=== PATIENT | male | born 1955 | race Hispanic/Latino ===

== ENCOUNTER 2017-03-31 17:50 | Emergency (ER) | payer BC, MEDICARE ==
[2017-03-31 17:50] VITALS: BMI 46.6
[2017-03-31 18:14] VITALS: TEMP 98.3
[2017-03-31 18:53] VITALS: O2SAT 96
--- NOTE | 2017-03-31 19:20 | ED PDOC ---
HPI: General Adult Time Seen by Provider: 03/31/17 18:26 Chief Complaint (Nursing): Dizziness/Lightheaded Chief Complaint (Provider): Dizziness/Lightheaded History Per: Patient History/Exam Limitations: no limitations Onset/Duration Of Symptoms: Days (x3 days) Current Symptoms Are (Timing): Still Present Additional Complaint(s): 62 y/o male presents to the emergency department with a complaint of on and off dizziness with lightheadedness x2 days. Associated with generalized weakness. Reports it was out of nowhere and comes back randomly. States he had not experienced episode in the past. Denies chest pain, nausea, vomiting, diarrhea, shortness of breath, abdominal pain, numbness, tingling, cough, congestion, fever, or loss of consciousness. Of note, patient is on 2 different blood thinners after a blood clot was found by the heart about 1 1/2 years ago. PMD: Dr. Salvador Talamantes MD Past Medical History Reviewed: Historical Data, Nursing Documentation, Vital Signs Vital Signs: Last Vital Signs Temp 98.3 F 03/31/17 18:10 Pulse 57 L 03/31/17 18:52 Resp 18 03/31/17 18:52 BP 157/97 H 03/31/17 18:52 Pulse Ox 96 03/31/17 20:37 - Medical History PMH: CAD, HTN, Hypercholesterolemia, Hyperlipidemia, Mitral Valve Prolapse ( Repaired in 08/2014), Rheumatoid Arthritis Denies: Chronic Kidney Disease - Surgical History Surgical History: CABG (2013), Coronary Stent Other surgeries: Valve repair, Single bypass ,3 knee, 2 hip and 1 shoulder replacement - Family History Family History: States: Unknown Family Hx - Social History Current smoker - smoking cessation education provided: No Alcohol: None Drugs: Denies - Immunization History Hx Tetanus Toxoid Vaccination: No Hx Influenza Vaccination: No Hx Pneumococcal Vaccination: No - Home Medications Home Medications: Ambulatory Orders Medication Instructions Recorded Aspirin [Aspirin Chewable] 81 mg PO DAILY #0 chew 11/27/15 Atorvastatin [Lipitor] 20 mg PO DAILY #0 tab 11/27/15 DAPTOmycin [Cubicin] 900 mg IV DAILY #0 vial 11/27/15 Docusate [Colace] 200 mg PO DAILY #0 cap 11/27/15 Ertapenem 1gm in NS 50ml [Invanz] 1 gm IV DAILY #0 bag 11/27/15 Ferrous Sulfate [Feosol] 325 mg PO BID #0 tab 11/27/15 Metoprolol Tartrate [Lopressor] 12.5 mg PO BID 11/27/15 Primidone [Mysoline] 200 mg PO DAILY #0 tab 11/27/15 oxyCODONE/Acetaminophen [Percocet 1 tab PO Q4 PRN #0 tab 11/27/15 5/325 mg Tab] Enoxaparin [Lovenox] 40 mg SQ DAILY 12/12/15 - Allergies Allergies/Adverse Reactions: Allergies Allergy/AdvReac Type Severity Reaction Status Date / Time No Known Allergies Allergy Verified 11/27/15 15:36 Review of Systems ROS Statement: Except As Marked, All Systems Reviewed And Found Negative Constitutional: Positive for: Weakness (Generalized). Negative for: Fever, Other (Loss of consciousness) ENT: Negative for: Nose Congestion Cardiovascular: Negative for: Chest Pain Respiratory: Negative for: Cough, Shortness of Breath Gastrointestinal: Negative for: Nausea, Vomiting, Abdominal Pain, Diarrhea Neurological: Positive for: Dizziness (Lightheadedness). Negative for: Numbness (tingling), Headache Physical Exam - Reviewed Nursing Documentation Reviewed: Yes Vital Signs Reviewed: Yes - Physical Exam Appears: Positive for: Non-toxic, No Acute Distress Head Exam: Positive for: ATRAUMATIC, NORMAL INSPECTION, NORMOCEPHALIC Skin: Positive for: Normal Color, Warm, Dry Eye Exam: Positive for: Normal appearance, EOMI, PERRL. Negative for: Conjunctival injection ENT: Positive for: Normal ENT Inspection, TM Is/Are (Clear), Other (Left-sided ear has a wax build up. Right ear is clear. ). Negative for: Pharyngeal Erythema Neck: Positive for: Normal, Supple Cardiovascular/Chest: Positive for: Regular Rate, Rhythm. Negative for: Murmur Respiratory: Positive for: Normal Breath Sounds. Negative for: Accessory Muscle Use, Respiratory Distress Gastrointestinal/Abdominal: Positive for: Normal Exam, Soft. Negative for: Tenderness Extremity: Positive for: Normal ROM. Negative for: Pedal Edema, Swelling Neurologic/Psych: Positive for: Alert, Oriented - Laboratory Results Result Diagrams: 03/31/17 18:58 03/31/17 18:58 Interpretation Of Abn Labs: no acute - ECG ECG: Positive for: Interpreted By Me, Viewed By Me ECG Rhythm: Positive for: Nonspecific Changes (same as old) O2 Sat by Pulse Oximetry: 96 (RA) Pulse Ox Interpretation: Normal - Radiology X-Ray: Interpreted by Me, Viewed By Me X-Ray Interpretation: No Acute Disease - Progress ED Course And Treament: 2041: Stable. AAOx3. No dizziness or chest pain. No weakness. Feels back to baseline. Refusing CT scan and further evaluation. Aware of possible or decreased functioning from dizziness and weakness. Will fu with pcp. Has capacity to make decisions. Said he will call his doctor tomorrow. Medical Decision Making Medical Decision Making: Time: 18:38 Initial impression: Dizziness Initial plan: --Head CT --EKG --B-Type Natriuretic --Metabolic Panel --Troponin I --PTT --Prothrombin Time --Chest Portable --IV Insertion --Reevaluation Scribe Attestation: Documented by Bethany Villagomez, acting as a scribe for Ryland Bhatia MD. Provider Scribe Attestation: All medical record entries made by the Scribe were at my direction and personally dictated by me. I have reviewed the chart and agree that the record accurately reflects my personal performance of the history, physical exam, medical decision making, and the department course for this patient. I have also personally directed, reviewed, and agree with the discharge instructions and disposition. Disposition - Clinical Impression Clinical Impression: Dizziness, Weakness - Patient ED Disposition Is Patient to be Admitted: No - Disposition Referrals: Salvador Talamantes MD [Family Provider] - 04/01/17 Disposition: Against Medical Advice Disposition Time: 20:44 Condition: FAIR Additional Instructions: You are going against medical advice. You need a catscan of your head and further evaluation/treatment for your dizziness and weakness. Be aware of possible or decreased functioning from the cause of your symptoms. Return right away for further evaluation and treatment. Instructions: Weakness (ED) Forms: [employer] (Thai)
[2017-03-31 19:26] LABS: BASO % 0.3 % (0.0-2.0); EOS # 0.2 K/uL (0.0-0.7); EOS % 5.4 % (0.0-4.0); LYMPH # 0.7 K/uL (1.0-4.3); LYMPH % 15.2 % (20.0-40.0); MEAN CELL VOLUME 85.3 fl (80.0-94.0); MEAN CORPUSCULAR HEMOGLOBIN 28.3 pg (27.0-31.0); MEAN CORPUSCULAR HGB CONC 33.2 g/dL (33.0-37.0); MEAN PLATELET VOLUME 8.9 fl (7.2-11.7); MONO # 0.6 K/uL (0.0-0.8); MONO % 12.4 % (0.0-10.0); NEUT % 66.7 % (50.0-75.0); NRBC % 0.2 % (0.0-0.0); RED CELL DISTRIBUTION WIDTH 16.9 % (11.5-14.5); WHITE BLOOD COUNT 4.5 K/uL (4.8-10.8)
[2017-03-31 19:34] LABS: ALB/GLOB RATIO 1.3 (1.0-2.1); ALBUMIN 4.2 g/dL (3.5-5.0); ALT/SGPT 46 U/L (21-72); AST/SGOT 24 U/L (17-59); BLOOD UREA NITROGEN 16 mg/dl (9-20); CALCIUM 9.5 mg/dL (8.4-10.2); GFR AFRICAN-AMERICAN > 60; GFR NON-AFRICAN AMERICAN > 60
[2017-03-31 19:45] LABS: B-TYPE NATRIURETIC PEPTIDE 220 pg/ml (0-900)
[2017-03-31 20:16] LABS: INR 2.4 (0.9-1.2); PARTIAL THROMBOPLASTIN TIME 42.5 Seconds (25.6-37.1)
[2017-04-01 00:09] VITALS: BP 150/96; PULSE 61; RESP 16
--- NOTE | 2017-04-01 09:31 | CT ---
PROCEDURE: CT HEAD WITHOUT CONTRAST. HISTORY: headache COMPARISON: None available. TECHNIQUE: Axial computed tomography images were obtained through the head/brain without intravenous contrast. Radiation dose: Total exam DLP = 457 mGy-cm. This CT exam was performed using one or more of the following dose reduction techniques: Automated exposure control, adjustment of the mA and/or kV according to patient size, and/or use of iterative reconstruction technique. FINDINGS: HEMORRHAGE: No intracranial hemorrhage. BRAIN: No mass effect or edema. No atrophy or chronic microvascular ischemic changes. VENTRICLES: Unremarkable. No hydrocephalus. CALVARIUM: Unremarkable. PARANASAL SINUSES: Unremarkable as visualized. No significant inflammatory changes. MASTOID AIR CELLS: Unremarkable as visualized. No inflammatory changes. OTHER FINDINGS: Atherosclerotic plaque is identified at the cavernous internal carotid artery segments bilaterally. IMPRESSION: Normal CT of the Head. Incidental internal carotid artery atherosclerosis identified bilaterally.
--- NOTE | 2017-04-01 11:59 | RAD ---
HISTORY: dizziness COMPARISON: 09/20/2015 FINDINGS: LUNGS: No active pulmonary disease. PLEURA: No significant pleural effusion identified, no pneumothorax apparent. CARDIOVASCULAR: Sternotomy wires. CABG. No congestive change. Normal heart size. OSSEOUS STRUCTURES: No significant abnormalities. VISUALIZED UPPER ABDOMEN: Normal. OTHER FINDINGS: None. IMPRESSION: No active disease.
--- NOTE | 2017-04-01 23:33 | CARD ---
APPROVED REPORT EKG Measurement Heart [id number] <Conclusion> Sinus bradycardia with 1st degree AV block Possible Left atrial enlargement Incomplete right bundle branch block Cannot rule out Anterior infarct, age undetermined Consider inferior infarct, age undetermined Abnormal ECG
== END 2017-03-31 22:36 | disposition home or self-care (01) ==
LOC: H.ER 17:50
DX: R42 Dizziness and giddiness (principal); M62.81 Muscle weakness (generalized); E78.00 Pure hypercholesterolemia, unspecified; I10 Essential (primary) hypertension; I25.10 Atherosclerotic heart disease of native coronary artery without angina pectoris; M06.9 Rheumatoid arthritis, unspecified; Z79.82 Long term (current) use of aspirin; Z95.1 Presence of aortocoronary bypass graft; Z95.5 Presence of coronary angioplasty implant and graft; Z96.619 Presence of unspecified artificial shoulder joint; I34.1 Nonrheumatic mitral (valve) prolapse